=== PATIENT | male | born 1950 | race African-American/Black ===

== ENCOUNTER → 2019-12-11 | Outpatient (CLI) | payer OTHER, MEDICARE | LOC: SJCVCIMAG 13:03 → SJCVC 13:03 | DX: I07.1 Rheumatic tricuspid insufficiency (principal); I25.10 Atherosclerotic heart disease of native coronary artery without angina pectoris; E11.9 Type 2 diabetes mellitus without complications; J44.9 Chronic obstructive pulmonary disease, unspecified; E78.5 Hyperlipidemia, unspecified; E66.9 Obesity, unspecified; F17.200 Nicotine dependence, unspecified, uncomplicated; Z82.49 Family history of ischemic heart disease and other diseases of the circulatory system; Z79.899 Other long term (current) drug therapy ==